=== PATIENT | male | born 1975 | race Caucasian/White ===

== ENCOUNTER 2017-04-30 13:56 | Emergency (ER) | payer OTHER ==
[~2017-04-30 13:56] MED LIST: CIPRO PO; FLEXERIL PO; KEFLEX500 M2 PO; NAPROSYN500 MG PO; ONDANSETRON ODT4 MG PO; PEPCID AC20 M2 PO; REGLAN10 MG PO
[2017-04-30] MEDS ORDERED: NO MEDICATIONS (13:59)
== END 2017-04-30 16:06 | disposition home or self-care (01) ==
LOC: SED 13:56
DX: H57.8 Other specified disorders of eye and adnexa (principal); Z87.442 Personal history of urinary calculi; Z88.8 Allergy status to other drugs, medicaments and biological substances; J30.81 Allergic rhinitis due to animal (cat) (dog) hair and dander
CPT/HCPCS: 99283

== ENCOUNTER 2017-06-19 12:47 | Emergency (ER) | payer OTHER ==
[~2017-06-19] VITALS: Ht 180.3 cm; Wt 93.0 kg
[~2017-06-19 12:47] MED LIST changes: +NO MEDICATIONS
[2017-06-19 14:15] LABS: URINE SOURCE CLEAN CATCH
[2017-06-19 14:17] LABS: URINE APPEARANCE CLEAR; URINE BILIRUBIN NEG (NEG); URINE BLOOD NEG (NEG); URINE COLOR YELLOW; URINE GLUCOSE NEG (NORM); URINE KETONE NEG (NEG); URINE LEUKOCYTE ESTERASE NEG (NEG); URINE NITRATE NEG (NEG); URINE PROTEIN NEG (NEG); URINE UROBILINOGEN 0.2 MG/DL (NORM)
[2017-06-19 14:22] LABS: MICRO INDICATED? NO
== END 2017-06-19 14:35 | disposition home or self-care (01) ==
LOC: SED 12:47
PROVIDERS: Nurse Practitioner Family
DX: M54.5 Low back pain (principal); F17.200 Nicotine dependence, unspecified, uncomplicated; Z91.09 Other allergy status, other than to drugs and biological substances; Z88.8 Allergy status to other drugs, medicaments and biological substances; Z98.890 Other specified postprocedural states
CPT/HCPCS: 81003; 96372; 99283; J1885